=== PATIENT | female | born 1990 | race Caucasian/White ===

== ENCOUNTER 2017-04-01 13:13 | Emergency (ER) | payer MEDICAID, OTHER ==
[~2017-04-01] VITALS: Ht 162.6 cm; Wt 87.0 kg
[2017-04-01 13:44] VITALS: BP 108/40
== END 2017-04-01 21:07 | disposition left against medical advice (07) ==
LOC: ER 14:15
DX: R07.9 Chest pain, unspecified (principal); Z53.21 Procedure and treatment not carried out due to patient leaving prior to being seen by health care provider